=== PATIENT | female | born 1980 | race African-American/Black ===

== ENCOUNTER 2017-06-13 07:17 | Emergency (ER) | payer SELFPAY ==
[2017-06-13] MEDS ORDERED: Ondansetron ODT 8 MG TAB ONE (09:48)
[2017-06-13] MEDS ORDERED: Ketorolac Tromethamine 30 MG/ML VIAL ONE (09:48)
== END 2017-06-13 10:25 | disposition home or self-care (01) ==
LOC: ERS 07:17
DX: B34.9 Viral infection, unspecified (principal); Z87.891 Personal history of nicotine dependence
CPT/HCPCS: 96372; J1885